=== PATIENT | female | born 1960 | race Caucasian/White ===

== ENCOUNTER 2023-01-28 15:48 | Inpatient (IN) | payer OTHER ==
[~2023-01-28] VITALS: Ht 167.6 cm; Wt 59.9 kg
[~2023-01-28 15:48] MED LIST: AMLO5 PO; ATEN50 PO; ATOR10 PO; ATOR40TA PO; B-121000 MC3 SL; CYCL10 PO; NAPR500 PO; OXAYDO5 M2 PO; TRAM50 PO
[2023-01-28] MEDS ORDERED: ASPI81CH PO (16:24)
[2023-01-28 16:42] LABS: BASOPHILS ABSOLUTE AUTO 0.08 K/mm3 (0.00-0.23); BASOPHILS PERCENT AUTO 1 % (0-2); EOSINOPHILS ABSOLUTE AUTO 0.03 K/mm3 (0.00-0.68); EOSINOPHILS PERCENT AUTO 0 % (0-6); Hematocrit 36.3 % (33.0-51.0); Hemoglobin 12.5 g/dL (11.5-16.0); IMMATURE GRAN ABSOLUTE AUTO 0.04 K/mm3 (0.00-0.10); IMMATURE GRAN PERCENT AUTO 1 % (0-1); LYMPHOCYTES PERCENT AUTO 27 % (21-46); MONOCYTES ABSOLUTE AUTO 0.56 K/mm3 (0.16-1.47); MONOCYTES PERCENT AUTO 7 % (4-13); Mean Corpuscular HGB 32.6 pg (26.0-34.0); Mean Corpuscular HGB Conc 34.4 g/dL (31.5-36.5); Mean Corpuscular Volume 95 fL (80-100); Mean Platelet Volume 10.5 fL (9.1-12.4); NEUTROPHILS ABSOLUTE AUTO 4.86 K/mm3 (1.96-9.15); NEUTROPHILS PERCENT AUTO 63 % (41-73); NRBC ABSOLUTE 0.02 K/mm3 (0.00-0.02); NRBC Auto 0.3 /100 WBC (0.0-0.2); Platelet Count 271 K/mm3 (150-400); RDW Coefficient Variation 18.3 % (11.7-14.2); RDW Standard Deviation 61.7 fL (35.1-46.3); Red Blood Cell Count 3.83 M/mm3 (3.80-5.20); White Blood Cell Count 7.67 K/mm3 (4.00-11.30)
[2023-01-28 17:21] LABS: Albumin, Blood 2.9 g/dL (3.4-5.0); Albumin/Globulin Ratio 0.8 (0.8-1.8); Bilirubin, Total 0.6 mg/dL (0.1-1.0); Bun/Creatinine Ratio 28.5 (12.0-20.0); Calcium, Blood 8.8 mg/dL (8.5-10.1); Creatinine, Blood 0.6 mg/dL (0.40-1.00); Globulin, Blood 3.5 g/dL (2.2-4.0); Potassium, Blood 2.4 mmol/L (3.5-5.5); Total Protein, Blood 6.4 g/dL (6.4-8.2)
[2023-01-28 17:46] LABS: Magnesium, Blood 1.2 mg/dL (1.6-2.4)
[2023-01-28 19:03] LABS: Influenza A, PCR NEGATIVE (NEGATIVE); Influenza B, PCR NEGATIVE (NEGATIVE); Resp Syncytial Virus, PCR NEGATIVE (NEGATIVE); SARS-Cov-2 (COVID-19) PCR, MMC NEGATIVE (NEGATIVE)
[2023-01-28 19:34] LABS: Source, Urine Clean Catch
[2023-01-28 19:38] LABS: Appearance, Urine Hazy (Clear); Blood, Urine 2+ (Neg); Color, Urine Yellow (P-Yellow); Glucose Qualitative, Urine Neg (Neg); Ketones, Urine 3+ (Neg); Leukocyte Esterase, Urine 1+ (Neg); Nitrite, Urine Neg (Neg); Protein, Urine 2+ (Neg); Specific Gravity, Urine 1.015 (1.003-1.022); Urobilinogen, Urine 2+ (Normal)
[2023-01-28 19:45] LABS: Bilirubin, Urine 1+ (Neg)
[2023-01-28 19:46] LABS: Bacteria Many /hpf; Hyaline Casts 0-2 /lpf (0-2); Squamous Epithelial Cells Mod /hpf (Few)
[2023-01-28 20:41] LABS: Base Excess Venous -2.4 mmol/L; Bicarbonate Venous 22.6 mmol/L (24.0-30.0); PCO2 Venous 36.2 mmHg (38-42)
[2023-01-28 21:31] VITALS: BP 98/74
--- NOTE | 2023-01-28 22:42 | NUR ---
AOC: PATIENT ALERT AND ORIENTED X 4 COTINENT OF BOWEL AND STOOL AT THIS TIME, [facility] PROVIDED ATTENDS IN PLACE. DENIES CHEST PAIN PRESSURE OR SOB, INFUSING D5 1/2NS AT 125 1 X ZOFRAN GIVEN DUE TO NAUSEA. SNACK PROVIDED, VSS, AFEBRILE. WARM BLANKETS PROVIDED. LAC IV REMOVED DUE TO POSSIBLE INFILTRATION. 20G STILL IN RFA. ANSWERS QUESTIONS HONESTLY AND ORIENTATION QUESTIONS APPROPRIATELY. PATIETN HAVING WEAKNESS, BSC AT BEDSIDE, EDUCATED ON CIL MEDICATIONS, CALL LIGHT, TELE IN PLACE. BED ALARM IN PLACE FOR PATIENT SAFETY.
[2023-01-28 23:46] LABS: Bun/Creatinine Ratio 25.4 (12.0-20.0); Calcium, Blood 7.1 mg/dL (8.5-10.1); Creatinine, Blood 0.59 mg/dL (0.40-1.00); Potassium, Blood 2.7 mmol/L (3.5-5.5)
[2023-01-28 23:49] VITALS: BP 85/55
[2023-01-29 04:58] VITALS: BP 95/75
--- NOTE | 2023-01-29 05:55 | NUR ---
EOS: PATIENT HAS INFUSING K+, STANDBY D5 1/2NS LAST CBG AT 0600, ELEVATED AT 169 SPOKE WITH PROVIDER PRIOR ABOUT SLOWLY INCREASING CBG, COOPERATIVE WITH CARE. NO CONCERNS FROM THIS RN.
[2023-01-29 07:47] VITALS: BP 93/71
[2023-01-29 08:21] LABS: BASOPHILS ABSOLUTE AUTO 0.04 K/mm3 (0.00-0.23); BASOPHILS PERCENT AUTO 1 % (0-2); EOSINOPHILS ABSOLUTE AUTO 0.03 K/mm3 (0.00-0.68); EOSINOPHILS PERCENT AUTO 1 % (0-6); Hematocrit 25.9 % (33.0-51.0); Hemoglobin 9.1 g/dL (11.5-16.0); IMMATURE GRAN ABSOLUTE AUTO 0.04 K/mm3 (0.00-0.10); IMMATURE GRAN PERCENT AUTO 1 % (0-1); LYMPHOCYTES ABSOLUTE AUTO 2.32 K/mm3 (0.84-5.20); LYMPHOCYTES PERCENT AUTO 38 % (21-46); MONOCYTES ABSOLUTE AUTO 0.63 K/mm3 (0.16-1.47); MONOCYTES PERCENT AUTO 10 % (4-13); Mean Corpuscular HGB 33.2 pg (26.0-34.0); Mean Corpuscular HGB Conc 35.1 g/dL (31.5-36.5); Mean Corpuscular Volume 95 fL (80-100); Mean Platelet Volume 11.2 fL (9.1-12.4); NEUTROPHILS ABSOLUTE AUTO 3.05 K/mm3 (1.96-9.15); NEUTROPHILS PERCENT AUTO 50 % (41-73); NRBC ABSOLUTE 0.02 K/mm3 (0.00-0.02); NRBC Auto 0.3 /100 WBC (0.0-0.2); Platelet Count 203 K/mm3 (150-400); RDW Coefficient Variation 18.1 % (11.7-14.2); RDW Standard Deviation 61.5 fL (35.1-46.3); Red Blood Cell Count 2.74 M/mm3 (3.80-5.20); White Blood Cell Count 6.11 K/mm3 (4.00-11.30)
[2023-01-29 09:24] LABS: Magnesium, Blood 1.4 mg/dL (1.6-2.4)
[2023-01-29 09:26] LABS: Albumin/Globulin Ratio 0.8 (0.8-1.8); Bilirubin, Total 0.2 mg/dL (0.1-1.0); Bun/Creatinine Ratio 21.2 (12.0-20.0); Calcium, Blood 6.9 mg/dL (8.5-10.1); Creatinine, Blood 0.57 mg/dL (0.40-1.00); Globulin, Blood 2.4 g/dL (2.2-4.0); Potassium, Blood 3.2 mmol/L (3.5-5.5); Total Protein, Blood 4.4 g/dL (6.4-8.2)
[2023-01-29 12:38] VITALS: BP 101/72
[2023-01-29 16:24] VITALS: BP 105/66
--- NOTE | 2023-01-29 17:04 | NUR ---
END OF SHIFT PT A&O X4. VSS. SPO2 > 92% ON RA. MONITOR SHOWING SR-ST, HR 80s-110s. PT WEAK, 1-2 PERSON ASSIST W/ GB & FWW TO BSC. PT BECOMING STRONGER T/O SHIFT. PT W/ EPISODES OF BOWEL INCONTINENCE THIS AM. PT W/ LIQUIDY BROWN STOOL & ONE XTRA LARGE HARD BM W/ SMALL AMOUNT OF RED BLOOD AFTER BM. PT ONLY W/ SMALL AMOUNT OF BRIGHT RED BLOOD WHEN WIPING AFTER NEXT BM. PT W/ FLAT AFFECT. PT STATING "I THOUGHT MY WAS FOR JUST A FEW DAYS, BUT THE POLICE SAID HE MUST HAVE BEEN FOR A WEEK OR SO." PT DENIES KNOWING HOW MUCH TIME PASSED. PT STATES "I WAS ON THE FLOOR. I COULDN'T GET UP BECAUSE I WAS PUKING." PT STATES "I DIDN'T KNOW WHERE MY PHONE WAS, BUT EVENTUALLY I MADE IT TO THE DOOR AND YELLED FOR HELP." PT W/ FLAT AFFECT WHILE SHARING. PT STATING "I DON'T KNOW WHAT HAPPENED TO HIM." PT W/ DIRT UNDER FINGERNAILS & SKIN APPEARING DIRT STAINED DESPITE BED BATHS IN HOSPITAL. 2 BED BATHS GIVEN THIS SHIFT. PT HAIR COMPLETELY MATTED W/ INCHES OF MATTED HAIR UNABLE TO DETANGLE DESPITE EFFORTS. PT STATING "I DIDN'T REALIZE IT WAS THAT BAD. IT'S BEEN NEEDING TO BE CUT OFF ANYWAYS." PT AGREEABLE TO CUTTING HAIR AFTER EXTENSIVE EFFORTS TO DETANGLE UNSUCCESSFUL. PT HAIR CUT & SHAMPOOED. PT REPORTS FEELING BETTER. PT W/ STRONG APPETITE, EATING ALL MEALS TODAY. D5 1/2 NS GTT INFUSING PER ORDERS. CBGs STABLE.
[2023-01-29 20:37] VITALS: BP 103/73
[2023-01-30 00:18] VITALS: BP 105/72
[2023-01-30 03:43] VITALS: BP 115/72
[2023-01-30 04:19] LABS: Hematocrit 25.6 % (33.0-51.0); Hemoglobin 8.7 g/dL (11.5-16.0); Mean Corpuscular HGB 32.2 pg (26.0-34.0); Mean Corpuscular Volume 95 fL (80-100); Mean Platelet Volume 10.9 fL (9.1-12.4); NRBC ABSOLUTE 0.03 K/mm3 (0.00-0.02); NRBC Auto 0.6 /100 WBC (0.0-0.2); Platelet Count 193 K/mm3 (150-400); RDW Coefficient Variation 18.2 % (11.7-14.2); RDW Standard Deviation 61.2 fL (35.1-46.3); White Blood Cell Count 4.78 K/mm3 (4.00-11.30)
--- NOTE | 2023-01-30 04:24 | NUR ---
SHIFT SUMMARY. PT HAS BEEN DOING WELL THROUGHOUT SHIFT. AOX4, PLEASANT, COOPERATIVE WITH CARE. FLAT DEMEANOR BUT VERY PLEASANT AND FRIENDLY. PAIN WELL MANAGED PER EMAR, ONLY MILD PAIN THAT SUBSIDES AFTER PO TYLENOL ADMINISTRATION. SOME NAUSEA REPORTED THIS MORNING THAT HAS BEEN WELL MANAGED VIA PRN IV ZOFRAN. CONTINENT/INCONTINENT. 2 CBG PERFORMED THIS SHIFT, BOTH >100MG/DL. CALLS APPROPRIATELY FOR ASSISTANCE. PT HAS BEEN ABLE TO SLEEP THROUGHOUT MOST OF SHIFT AFTER SHIFT ASSESSMENT AND 2100 MED PASS. BED LOCKED IN LOWEST POSITION. CALL LIGHT LEFT WITHINR REACH.
[2023-01-30 05:03] LABS: Bun/Creatinine Ratio 13.5 (12.0-20.0); Creatinine, Blood 0.67 mg/dL (0.40-1.00); Magnesium, Blood 1.9 mg/dL (1.6-2.4); Potassium, Blood 3.4 mmol/L (3.5-5.5); Thyroid Stimulating Hormone 1.31 uIU/mL (0.360-4.800)
[2023-01-30 08:25] VITALS: BP 96/76
--- NOTE | 2023-01-30 09:00 | NUR ---
SpirituaL care visit conducted. Patient is sitting up in bed and eating breakfast. She immediately shares about the of her spouse just days ago, about the removal of her dog to the pound and her strong Hoahaoism heather. She admits to drinking heavily and to blacking out. She states that the last thing she remembers is her holding the left side of his head, complaining of pain and then going into the kitchen. Her memory picks back up with her lying on the kitchen floor next to him, with no recollection of how she got there. She states that she could not move and struggled terribly to open the back door and yell at her neighbor who called . She talks about her spouse the positives and negatives about him, his conversion experience into the Hoahaoism heather and his two baptisms and the tensions she had with her in-laws over church. She is tearful at times but weeps when I provide a prayer. I normalize her experience, feelings and fears about the future, and provide grief support, therapeutic listening and a calming presence. I will continue to remain available to patient and family.
--- NOTE | 2023-01-30 09:43 | NUR ---
AT APROX 0825 RN TO ROOM TO ASSIST PT TO BSC. PT VERY WEAK 1 PERSON MAX ASSIST TO TRANSFER TO BSC. DURING TRANSFER PT HR ST @155. ONCE AT REST PT HR DECREASED TO 105. NOTIFIED. WILL OBTAIN ORTHOSTATIC VITALS WHEN PT UP AGAIN AND GIVE 1L BOLUS LR NOW.
[2023-01-30 17:28] VITALS: BP 110/81
--- NOTE | 2023-01-30 18:53 | NUR ---
SHIFT SUMMARY PT HAS DONE WELL T/O SHIFT. CIWA 0. PT HAS REPORTED PAIN TO L HEEL OF FOOT, NO OBVIOUS INJURY ON EXAM, TYLENOL FOR PAIN. PT UP TO BSC MULTIPLE TIMES T/O SHIFT 1-2 MAX ASSIST AT TIMES DUE TO WEAKNESS. MULTIPLE LARGE SOFT BM. VOIDING W/O DIFFICULTY. UP TO CHAIR FOR APROX 6 HRS AND TO SHOWER. TOLERATING REGULAR DIET PT WAS NAUSEATED FOLOWING NAP, MEDICATED AND RELIEVED WITH ZOFRAN. SALINE LOCKED. SPIRITUAL CARE IN TO SEE PT. PT CONTINUES TO HAVE FLAT AFFECT, REPORTS THAT SHE IS UNSURE OF WHAT OCCURED EXACTLY THAT LED TO HER BEING BROUGHT HERE. IS A/O X'S 4 T/O SHIFT. APS IN TO VISIT PT.
[2023-01-30 20:10] VITALS: BP 110/7
[2023-01-31 00:55] VITALS: BP 113/81
[2023-01-31 04:19] VITALS: BP 97/72
--- NOTE | 2023-01-31 04:38 | NUR ---
SHIFT SUMMARY. PT HAS BEEN DOING WELL THIS SHIFT. AOX4, PLEASANT, COOPERATIVE WITH CARE. SOMEWHAT FLAT BUT VERY PLEASANT. HAS BEEN ABLE TO SLEEP THROUGH MOST OF SHIFT. ONE EPISODE OF INCONTINENT BM EARLY THIS MORNING, NONE SINCE. BED CHANGE AND BED BATH PERFORMED. PAIN ADEQUATELY MANAGED ON PRN TYLENOL. HAS NOT GOTTEN OUT OF BED THUS FAR THIS SHIFT. CALLS APPROPRIATELY FOR ASSISTANCE. REPOSITIONS SELF INDEPENDENTLY. BED LOCKED IN LOWEST POSITION. CALL LIGHT LEFT WITHIN REACH. CONTINUING TO MONITOR.
[2023-01-31 05:14] LABS: Hematocrit 25.7 % (33.0-51.0); Hemoglobin 8.6 g/dL (11.5-16.0); Mean Corpuscular HGB 32.2 pg (26.0-34.0); Mean Corpuscular HGB Conc 33.5 g/dL (31.5-36.5); Mean Corpuscular Volume 96 fL (80-100); Mean Platelet Volume 11.4 fL (9.1-12.4); Platelet Count 199 K/mm3 (150-400); RDW Coefficient Variation 18.5 % (11.7-14.2); RDW Standard Deviation 64.1 fL (35.1-46.3); Red Blood Cell Count 2.67 M/mm3 (3.80-5.20); White Blood Cell Count 7.84 K/mm3 (4.00-11.30)
[2023-01-31 06:04] LABS: Bun/Creatinine Ratio 13.2 (12.0-20.0); Creatinine, Blood 0.61 mg/dL (0.40-1.00); Potassium, Blood 4.2 mmol/L (3.5-5.5)
[2023-01-31 07:32] VITALS: BP 90/69
[2023-01-31 08:09] LABS: Percent Saturation 50.6 % (15.0-50.0)
[2023-01-31 11:53] VITALS: BP 99/72
[2023-01-31 12:09] LABS: SARS-Cov-2 (COVID-19) PCR, MMC NEGATIVE (NEGATIVE)
--- NOTE | 2023-01-31 14:49 | NUR ---
DISCHARGE NOTE: PATIENT IS BEING DISCHARGED AND TRANSPORTED BY [facility] TO [facility]. THIS NURSE JUST GAVE REPORT TO LEO DIOR FROM [facility]. AFTER REPORT LEO RN FROM [facility] HAD NO FURTHER QUESTIONS AT THIS TIME. IV AND POWERGLIDE WERE TAKEN OUT AND WNL. PATIENT IS A&OX2-3 WITH HX OF DEMENTIA BUT IS EASILY REORIENTED. PATIENT IS TOLERATING PO INTAKE AND IS VOIDING/PASSING GAS/HAD MULTIPLE BMS. SHE IS DRESSED IN PAPER SCRUBS DUE TO HER STREET CLOTHING BEING SOILD IN URINE. SHE HAS ALL OF HER PERSONAL ITEMS IN THE ROOM GATHERED. PATIENT IS A 1-2 PERESON SBA WITH FWW AND GAIT BELT TO THE [id number]. PATIENT IS BEING WHEELCHAIRED BY [facility]SPORT TO [facility]. THIS NURSE ALSO GOT A HOLD OF DEPUTY FARRIS FROM [employer] TO UPDATE HIM THAT THE PATIENT IS BEING DISCHARGED TO [facility] WHICH DEPUTY FARRIS STATED HE UNDERSTOOD AND WOULD MAKE NOTE OF IT.
== END 2023-01-31 14:59 | DRG 640 ==
LOC: ER 15:48 → PCU 15:49
PROVIDERS: Emergency Medicine; Family Medicine; Internal Medicine; Nurse Practitioner Acute Care; Student in an Organized Health Care Education/Training Program; ADMIT Internal Medicine
PROC: HZ2ZZZZ Detoxification Services for Substance Abuse Treatment (ICD-10-PCS; principal; 2023-01-29)
DX: E87.6 Hypokalemia (principal); G92.8 Other toxic encephalopathy; D62 Acute posthemorrhagic anemia; I10 Essential (primary) hypertension; E87.21 Acute metabolic acidosis; E83.51 Hypocalcemia; E16.2 Hypoglycemia, unspecified; E83.42 Hypomagnesemia; W18.30XA Fall on same level, unspecified, initial encounter; F10.229 Alcohol dependence with intoxication, unspecified; F10.20 Alcohol dependence, uncomplicated; F43.20 Adjustment disorder, unspecified; E86.1 Hypovolemia; I95.9 Hypotension, unspecified; F17.210 Nicotine dependence, cigarettes, uncomplicated; F03.90 Unspecified dementia, unspecified severity, without behavioral disturbance, psychotic disturbance, mood disturbance, and anxiety; Z79.899 Other long term (current) drug therapy; Z79.82 Long term (current) use of aspirin
CPT/HCPCS: 0241U; 36415; 80048; 80053; 81001; 82010; 82330; 82550; 82607; 82728; 82746; 82803; 82947; 83540; 83550; 83605; 83735; 84443; 85025; 85027; 87086; 93005; 93010; 96361; 96365; 96366; 96367; 96368; 96372; 96375; 96376; 97110; 97162; 97530; 99285-25; A9270; G0378; J0612; J0696; J1650; J2405; J3411; J3475; J3480; J7030; J7040; J7042; J7050; J7120; U0002

== ENCOUNTER 2023-06-09 18:53 | Emergency (ER) | payer OTHER ==
[~2023-06-09] VITALS: Ht 167.6 cm; Wt 68.0 kg
[~2023-06-09 18:53] MED LIST changes: +ASPI81CH PO
[2023-06-09 19:31] LABS: BASOPHILS ABSOLUTE AUTO 0.05 K/mm3 (0.00-0.23); BASOPHILS PERCENT AUTO 0 % (0-2); EOSINOPHILS ABSOLUTE AUTO 0.11 K/mm3 (0.00-0.68); EOSINOPHILS PERCENT AUTO 1 % (0-6); Hematocrit 38.6 % (33.0-51.0); Hemoglobin 12.8 g/dL (11.5-16.0); IMMATURE GRAN ABSOLUTE AUTO 0.08 K/mm3 (0.00-0.10); IMMATURE GRAN PERCENT AUTO 1 % (0-1); LYMPHOCYTES ABSOLUTE AUTO 2.06 K/mm3 (0.84-5.20); LYMPHOCYTES PERCENT AUTO 17 % (21-46); MONOCYTES ABSOLUTE AUTO 0.91 K/mm3 (0.16-1.47); MONOCYTES PERCENT AUTO 8 % (4-13); Mean Corpuscular HGB 31.4 pg (26.0-34.0); Mean Corpuscular HGB Conc 33.2 g/dL (31.5-36.5); Mean Corpuscular Volume 95 fL (80-100); NEUTROPHILS ABSOLUTE AUTO 8.71 K/mm3 (1.96-9.15); NEUTROPHILS PERCENT AUTO 73 % (41-73); Platelet Count 178 K/mm3 (150-400); RDW Standard Deviation 52.2 fL (35.1-46.3); Red Blood Cell Count 4.08 M/mm3 (3.80-5.20); White Blood Cell Count 11.92 K/mm3 (4.00-11.30)
[2023-06-09 19:58] LABS: Bun/Creatinine Ratio 21.8 (12.0-20.0); Calcium, Blood 9.3 mg/dL (8.5-10.1); Creatinine, Blood 1.01 mg/dL (0.40-1.00); Potassium, Blood 2.8 mmol/L (3.5-5.5)
[2023-06-09] MEDS ORDERED: Potassium Chloride 20 MEQ TabCR PO ONE (21:05)
[2023-06-09 21:50] LABS: U Amphetamine Screen Not Detected; U Barbituate Screen Not Detected; U Benzodiazapine Screen Not Detected; U Buprenorphine Screen Not Detected; U Cannabinoids Screen Not Detected; U Cocaine Screen Not Detected; U Methadone Screen Not Detected; U Methamphetamine Screen Not Detected; U Opiates Screen Not Detected; U Oxycodone Screen Not Detected; U Phencyclidine Screen Not Detected
[2023-06-09 22:00] VITALS: BP 118/86
== END 2023-06-09 22:28 | disposition home or self-care (01) ==
LOC: ER 18:53
PROVIDERS: Student in an Organized Health Care Education/Training Program
DX: E87.6 Hypokalemia (principal); R55 Syncope and collapse; R56.9 Unspecified convulsions; D72.829 Elevated white blood cell count, unspecified; I10 Essential (primary) hypertension; F03.90 Unspecified dementia, unspecified severity, without behavioral disturbance, psychotic disturbance, mood disturbance, and anxiety; F17.200 Nicotine dependence, unspecified, uncomplicated; Z79.82 Long term (current) use of aspirin; Z79.899 Other long term (current) drug therapy
CPT/HCPCS: 70450; 80048; 83735; 85025; 93005; 93010; 99285-25; A9270

== ENCOUNTER 2024-02-16 23:34 | Inpatient (IN) | payer OTHER ==
[~2024-02-16] VITALS: Ht 152.4 cm; Wt 75.3 kg
[2024-02-17] MEDS ORDERED: Midazolam HCl 1MG / ML 2ML Vial IV SCH (02:20)
[2024-02-17 02:32] LABS: BASOPHILS ABSOLUTE AUTO 0.12 K/mm3 (0.00-0.23); BASOPHILS PERCENT AUTO 2 % (0-2); EOSINOPHILS ABSOLUTE AUTO 0.11 K/mm3 (0.00-0.68); EOSINOPHILS PERCENT AUTO 2 % (0-6); Hematocrit 40.9 % (33.0-51.0); Hemoglobin 13.9 g/dL (11.5-16.0); IMMATURE GRAN ABSOLUTE AUTO 0.03 K/mm3 (0.00-0.10); IMMATURE GRAN PERCENT AUTO 1 % (0-1); LYMPHOCYTES ABSOLUTE AUTO 2.73 K/mm3 (0.84-5.20); LYMPHOCYTES PERCENT AUTO 46 % (21-46); MONOCYTES ABSOLUTE AUTO 0.39 K/mm3 (0.16-1.47); MONOCYTES PERCENT AUTO 7 % (4-13); Mean Corpuscular HGB 35.7 pg (26.0-34.0); Mean Corpuscular Volume 105 fL (80-100); Mean Platelet Volume 9.1 fL (9.1-12.4); NEUTROPHILS ABSOLUTE AUTO 2.54 K/mm3 (1.96-9.15); NEUTROPHILS PERCENT AUTO 43 % (41-73); Platelet Count 251 K/mm3 (150-400); RDW Coefficient Variation 17.4 % (11.7-14.2); RDW Standard Deviation 67.9 fL (35.1-46.3); Red Blood Cell Count 3.89 M/mm3 (3.80-5.20); White Blood Cell Count 5.92 K/mm3 (4.00-11.30)
[2024-02-17 02:47] LABS: Base Excess Venous -1.9 mmol/L; Bicarbonate Venous 22.1 mmol/L (24.0-30.0); PCO2 Venous 47.5 mmHg (38-42); pH Blood Venous 7.32 (7.34-7.37)
[2024-02-17 02:56] LABS: Magnesium, Blood 1.2 mg/dL (1.6-2.4); Thyroid Stimulating Hormone 0.447 uIU/mL (0.360-4.800)
[2024-02-17 02:59] LABS: Alanine Aminotransfer (ALT/SGP 18 U/L (12-78); Albumin, Blood 3.5 g/dL (3.4-5.0); Albumin/Globulin Ratio 0.9 (0.8-1.8); Alk Phos 83 U/L (50-136); Anion Gap 12 mmol/L (3-11); Aspartate Aminotrans (AST/SGOT 28 U/L (12-37); Bilirubin, Total 0.3 mg/dL (0.1-1.0); Blood Urea Nitrogen 19 mg/dL (8-24); Bun/Creatinine Ratio 30.8 (12.0-20.0); CO2, Blood 24 mmol/L (21-32); Calcium, Blood 8.8 mg/dL (8.5-10.1); Chloride, Blood 115 mmol/L (98-108); Creatinine, Blood 0.62 mg/dL (0.40-1.00); Ethanol (Alcohol), Blood, Med 308 mg/dL; Glomerular Filtration Rate 99 (60-); Glucose, Blood 84 mg/dL (70-99); Potassium, Blood 3.4 mmol/L (3.5-5.5); Sodium, Blood 148 mmol/L (136-145); Total Protein, Blood 7.5 g/dL (6.4-8.2)
[2024-02-17 03:00] LABS: Acetaminophen, Random <2.0 ug/mL (10.0-30.0)
[2024-02-17 03:23] LABS: Influenza A, PCR NEGATIVE (NEGATIVE); Influenza B, PCR NEGATIVE (NEGATIVE); Resp Syncytial Virus, PCR NEGATIVE (NEGATIVE); SARS-Cov-2 (COVID-19) PCR, MMC NEGATIVE (NEGATIVE)
[2024-02-17] MEDS ORDERED: NS 1,000 ML IV SCH (04:00)
[2024-02-17] MEDS ORDERED: Magnesium Sulf 2 GM/Water 50ML 50 ML IV ONE (04:10)
[2024-02-17] MEDS ORDERED: Potassium Chl 20MEQ/Water100ML 100 ML IV ONE (04:10)
[2024-02-17] MEDS ORDERED: Lactated Ringer's 1,000 ML IV SCH ×3 (04:10→07:45)
[2024-02-17] MEDS ORDERED: Thiamine HCl 100 MG in NS 50 ML IV ONE (04:55)
[2024-02-17] MEDS ORDERED: Folic Acid 1 MG in NS 50 ML IV ONE (04:55)
[2024-02-17] MEDS ORDERED: FLU VACC TS2024-25(6MOS UP)/PF 45 MCG/0.5 ML SYRINGE IM SCH (05:20)
[2024-02-17] MEDS ORDERED: ChlordiazePOXIDE 25 MG Cap PO PRN (05:20)
[2024-02-17] MEDS ORDERED: Acetaminophen 325 MG TABLET PO PRN (05:20)
[2024-02-17] MEDS ORDERED: LORazepam 2 MG/ML 1ML Injection IV PRN (05:25)
[2024-02-17] MEDS ORDERED: HydrALAZINE HCl 20 MG / ML 1ML Vial IV PRN (05:25)
[2024-02-17] MEDS ORDERED: FOLI1 PO (05:25)
[2024-02-17] MEDS ORDERED: Hair, Skin & N1 EACH PO (05:26)
[2024-02-17 06:00] LABS: Base Excess Venous -0.5 mmol/L; Bicarbonate Venous 23.3 mmol/L (24.0-30.0); PCO2 Venous 42.2 mmHg (38-42); pH Blood Venous 7.38 (7.34-7.37)
[2024-02-17] MEDS ORDERED: Nicotine 14 MG PATCH TOP ONE (06:05)
[2024-02-17 06:22] LABS: Source, Urine Clean Catch
[2024-02-17 06:29] LABS: Appearance, Urine Clear (Clear); Bilirubin, Urine Neg (Neg); Blood, Urine Neg (Neg); Color, Urine Yellow (P-Yellow); Glucose Qualitative, Urine Neg (Neg); Ketones, Urine Neg (Neg); Leukocyte Esterase, Urine Neg (Neg); Nitrite, Urine Neg (Neg); Protein, Urine 2+ (Neg); Specific Gravity, Urine 1.015 (1.003-1.022); Urobilinogen, Urine NORM (Normal)
[2024-02-17 06:37] LABS: Bacteria Rare /hpf; Red Blood Cells, Urine 0-2 /hpf (0-2); Squamous Epithelial Cells Few /hpf (Few); White Blood Cells, Urine 0-2 /hpf (0-5)
[2024-02-17 06:52] LABS: Albumin, Blood 3.3 g/dL (3.4-5.0); Anion Gap 14 mmol/L (3-11); Blood Urea Nitrogen 19 mg/dL (8-24); Bun/Creatinine Ratio 36.7 (12.0-20.0); CO2, Blood 24 mmol/L (21-32); Calcium, Blood 8.5 mg/dL (8.5-10.1); Chloride, Blood 114 mmol/L (98-108); Creatinine, Blood 0.52 mg/dL (0.40-1.00); Glomerular Filtration Rate 104 (60-); Glucose, Blood 89 mg/dL (70-99); Magnesium, Blood 1.9 mg/dL (1.6-2.4); Phosphorus, Blood 2.5 mg/dL (2.5-4.9); Potassium, Blood 3.5 mmol/L (3.5-5.5); Sodium, Blood 148 mmol/L (136-145)
[2024-02-17 06:56] VITALS: BP 176/119
[2024-02-17 07:29] VITALS: BP 166/99
[2024-02-17 07:30] VITALS: BP 166/99
[2024-02-17] MEDS ORDERED: Potassium Chl 10MEQ/Water100ML 100 ML IV SCH (09:05)
[2024-02-17 15:58] VITALS: BP 168/106
--- NOTE | 2024-02-17 17:44 | NUR ---
ADMISSION AND SHIFT SUMMARY PATIENT ALERT BUT CONFUSED. PATIENT EASILY IRRITABLE AND SAYING SHE HAS BEEN HERE FOR DAYS. PATIENT ADMITTED TODAY. PATIENT ALSO NOTED TO BE INCONTINENT STOOL X2 IN ED. PATIENT WANTING TO EAT BUT VOMITTING MOST OF THE MORNING. PATIENT ABLE TO KEEP LIQUIDS DOWN LATER IN THE SHIFT AND ADVANCED TO HAVE A DIET. PATIENT MEDICATED WITH ATIVAN X2 IV THEN GIVEN PO LIBRIUM WHEN NO LONGER VOMITTING. PATIENT UNSTEADY AND SHAKY WHEN ATTEMPTING TO GET OUT OF BED. BED ALARM SET FOR SAFETY. PATIENT CONTINUES TO BE CONFUSED BUT ABLE TO BE REORIENTED. CONTINUE TO MONITOR FOR SYMPTOMS OF WITHDRAWL.
[2024-02-17 20:37] VITALS: BP 176/122
[2024-02-18 02:10] VITALS: BP 167/109
--- NOTE | 2024-02-18 04:45 | NUR ---
SHIFT SUMMARY 64 YR F ADMITTED ON 02/17/24. FULL CODE. NO ACUTE CHANGES THIS SHIFT. PT HAS SLEPT FOR MOST OF THIS SHIFT. SHE HAS NOT BEEN INCONTINENT THIS SHIFT, BUT RATHER HAS GOTTEN UP TO THE BSC. SHE RECEIVED 10 MG HYDRALIZINE FOR ELEVATED BP, AND 2 MG ATIVAN FOR A CIWA SCORE OF 8. IV IN LEFT ARM INFILTRATED AND NEW IV PLACED IN RIGHT HAND. WILL CONTINUE TO MONITOR. BED IN LOW POSITION AND CALL LIGHT IN REACH.
[2024-02-18 05:20] LABS: Hematocrit 37.8 % (33.0-51.0); Hemoglobin 13.3 g/dL (11.5-16.0); Mean Corpuscular HGB 35.8 pg (26.0-34.0); Mean Corpuscular HGB Conc 35.2 g/dL (31.5-36.5); Mean Corpuscular Volume 102 fL (80-100); Mean Platelet Volume 9.8 fL (9.1-12.4); NRBC ABSOLUTE 0.02 K/mm3 (0.00-0.02); NRBC Auto 0.4 /100 WBC (0.0-0.2); Platelet Count 237 K/mm3 (150-400); RDW Coefficient Variation 16.8 % (11.7-14.2); RDW Standard Deviation 63.5 fL (35.1-46.3); Red Blood Cell Count 3.71 M/mm3 (3.80-5.20); White Blood Cell Count 5.07 K/mm3 (4.00-11.30)
[2024-02-18 06:04] LABS: Albumin, Blood 3.5 g/dL (3.4-5.0); Anion Gap 13 mmol/L (3-11); Blood Urea Nitrogen 9 mg/dL (8-24); CO2, Blood 25 mmol/L (21-32); Calcium, Blood 8.7 mg/dL (8.5-10.1); Chloride, Blood 100 mmol/L (98-108); Glomerular Filtration Rate 100 (60-); Glucose, Blood 116 mg/dL (70-99); Magnesium, Blood 0.9 mg/dL (1.6-2.4); Phosphorus, Blood 2.1 mg/dL (2.5-4.9); Potassium, Blood 2.9 mmol/L (3.5-5.5)
[2024-02-18 06:05] LABS: Sodium, Blood 135 mmol/L (136-145)
[2024-02-18] MEDS ORDERED: Potassium Phosphate Dibasic 30 MM in Dextrose 5% 500 ML IV STA (06:23)
[2024-02-18] MEDS ORDERED: Magnesium Sulf 2 GM/Water 50ML 50 ML IV ONE (06:25)
[2024-02-18 07:51] VITALS: BP 154/114
[2024-02-18] MEDS ORDERED: Enoxaparin 40 MG/0.4 ML SYR SC SCH (09:00)
[2024-02-18] MEDS ORDERED: AmLODIPine Besylate 5 MG Tab PO SCH (09:00)
[2024-02-18] MEDS ORDERED: Lisinopril 10 MG Tab PO SCH (09:00)
[2024-02-18] MEDS ORDERED: Thiamine HCl 100 MG in NS 50 ML IV SCH (09:00)
[2024-02-18] MEDS ORDERED: Folic Acid 1 MG in NS 50 ML IV SCH (09:00)
--- NOTE | 2024-02-18 09:39 | NUR ---
ASSUMED CARE OF PATIENT. SLEEPING ON LEFT SIDE DURING SHIFT CHANGE REPORT. SALINE LOCKED.
--- NOTE | 2024-02-18 11:25 | NUR ---
Call from friend, Harika Spencer, who states she is the one who cares for Judith. Judith's only family is a brother who lives [id number] and his is currently actively dying on hospice, so she is trying to avoid contacting him. Harika has gathered a group of people to clean Judith's house while she is in the hospital and is wondering how she would go about getting Judith more assistance, such as a walker, a bedside commode, etc. Will await PT/OT eval and recommendations. In the meantime, Harika can be reached for anything that may need to be done. She did report Judith has not bathed in a very long time. Will attempt bedbath today, as she is very lethargic from medications, at this time. Vargas Mackenzie - Judith's brother [phone] Harika Spencer: Home:
[2024-02-18 16:00] VITALS: BP 110/87
[2024-02-18 16:31] LABS: Magnesium, Blood 1.7 mg/dL (1.6-2.4); Potassium, Blood 3.6 mmol/L (3.5-5.5)
--- NOTE | 2024-02-18 18:28 | NUR ---
END OF SHIFT SUMMARY: A&Ox3-4. PLEASANT AND COOPERATIVE WITH CARE. CALLS APPROPRIATELY AND IS ABLE TO ADVOCATE NEEDS EFFECTIVELY. CONTINENT OF BOWEL AND BLADDER. SBA c FWW PIVOT TO BSC FOR SAFETY AND LINE MANAGEMENT. MEDS WHOLE WITH FLUIDS. CIWAs TODAY 10, 4 AND 8. MEDICATED PRN LIBRIUM x2 AND ATIVAN x1. SOME TACTILE DISTURBANCES. SLEPT MOST OF DAY. TOLERATING FLUIDS AND MEALS WITHOUT ISSUE. IV THIAMINE AND MVI CHANGED TO PO. ELECTROLYTES REPLACED TODAY VIA IV. BED IN LOWEST POSITION, CALL LIGHT WITHIN REACH, ALL NEEDS MET. REPORT TO ONCOMING NURSE.
[2024-02-18 20:03] VITALS: BP 119/90
[2024-02-19 02:38] VITALS: BP 111/79
[2024-02-19 06:04] LABS: Hematocrit 36.9 % (33.0-51.0); Hemoglobin 12.7 g/dL (11.5-16.0); Mean Corpuscular HGB 35.7 pg (26.0-34.0); Mean Corpuscular HGB Conc 34.4 g/dL (31.5-36.5); Mean Corpuscular Volume 104 fL (80-100); Mean Platelet Volume 10.2 fL (9.1-12.4); NRBC ABSOLUTE 0.02 K/mm3 (0.00-0.02); NRBC Auto 0.4 /100 WBC (0.0-0.2); Platelet Count 222 K/mm3 (150-400); RDW Coefficient Variation 16.6 % (11.7-14.2); RDW Standard Deviation 63.9 fL (35.1-46.3); Red Blood Cell Count 3.56 M/mm3 (3.80-5.20); White Blood Cell Count 4.96 K/mm3 (4.00-11.30)
--- NOTE | 2024-02-19 06:34 | NUR ---
SHIFT SUMMARY 64 YR F ADMITTED ON 02/17/24. FULL CODE. NO ACUTE CHANGES THIS SHIFT. PT HAS SLEPT FOR ENTIRETY OF THIS SHIFT. CIWA SCORES WERE 4 AND NO PRN MEDS WERE GIVEN. BED IN LOW POSITION AND CALL LIGHT IN REACH.
[2024-02-19 06:46] LABS: Albumin, Blood 3.2 g/dL (3.4-5.0); Anion Gap 10 mmol/L (3-11); Blood Urea Nitrogen 20 mg/dL (8-24); Bun/Creatinine Ratio 18.9 (12.0-20.0); CO2, Blood 27 mmol/L (21-32); Chloride, Blood 104 mmol/L (98-108); Creatinine, Blood 1.06 mg/dL (0.40-1.00); Glomerular Filtration Rate 59 (60-); Glucose, Blood 114 mg/dL (70-99); Magnesium, Blood 1.6 mg/dL (1.6-2.4); Phosphorus, Blood 4.1 mg/dL (2.5-4.9); Potassium, Blood 3.1 mmol/L (3.5-5.5); Sodium, Blood 138 mmol/L (136-145)
[2024-02-19 07:30] VITALS: BP 127/90
[2024-02-19] MEDS ORDERED: Potassium Chloride 20 MEQ TabCR PO ONE (07:35)
[2024-02-19] MEDS ORDERED: Multivitamins 1 Tab PO SCH (09:00)
[2024-02-19 15:41] VITALS: BP 99/80
--- NOTE | 2024-02-19 18:09 | NUR ---
SHIFT SUMMARY PT CONT LEVEL OF CARE WITH NO ACUTE CHANGES NOTED. PT NOTED TO BE A&OX4 THIS SHIFT AND ASSIST X1. PT DID WORK WITH THERAPY THIS SHIFT WHOM IS RECOMMENDING HOME HEALTH UPON DC. PT NOTED TO WALK TO RESTROOM AND AROUND ROOM WITH STAFF AND UP TO CHAIR FOR MEALS.
[2024-02-19 19:17] VITALS: BP 123/84
[2024-02-20 04:28] VITALS: BP 128/103
--- NOTE | 2024-02-20 04:41 | NUR ---
SHIFT SUMMARY 64 YR F ADMITTED ON 02/17/24. NO ACUTE CHANGES THIS SHIFT. PT C/O HEADACHE AT BEGINNING OF SHIFT AND MEDICATED W/ TYLENOL. NO OTHER C/O PAIN OR DISCOMFORT. CIWA SCORES HAVE BEEN 1. SHE HAS SLEPT THROUGHOUT THE NIGHT. NOTHING NEW TO REPORT. BED IN LOW POSITION AND CALL LIGHT IN REACH.
[2024-02-20 05:16] LABS: Bun/Creatinine Ratio 23.8 (12.0-20.0); Calcium, Blood 9.1 mg/dL (8.5-10.1); Creatinine, Blood 0.97 mg/dL (0.40-1.00); Potassium, Blood 3.7 mmol/L (3.5-5.5)
[2024-02-20 07:23] VITALS: BP 150/98
[2024-02-20 16:06] VITALS: BP 136/117
--- NOTE | 2024-02-20 16:21 | NUR ---
report received verified, a/o vss, pt pleasent and cooperative and not at all showing symptoms of etoh withdrawl. possible discharge for pt today.
--- NOTE | 2024-02-20 16:23 | NUR ---
pt has discharge orders but when i spoke with manager medicare marketing she states that pts house is very much uninhabitable and she wasnt expecting to have pt home today and she had removed bed because it was severly soiled. caregiver stated she will replace the bed tomorrow. case managere and were notified and discharge is held until tomorrow.
--- NOTE | 2024-02-20 16:26 | NUR ---
1500 pt was assisted with shower, she cherri very well and was mostly independant .
[2024-02-20 19:36] VITALS: BP 132/92
--- NOTE | 2024-02-20 22:34 | NUR ---
NEW T-ORDER FROM ON-CALL HOSPITALIST : MELATONIN 5MG PO PRN, AND MELATONIN 5MG PO NOW. ENTERED TO [employer], SEE EMAR. NO ADDITIONAL NEW ORDERS AT THIS TIME.
[2024-02-20] MEDS ORDERED: Melatonin 5 MG Tablet PO ONE (22:35)
[2024-02-20] MEDS ORDERED: Melatonin 5 MG Tablet PO PRN (22:35)
[2024-02-21 02:35] VITALS: BP 141/100
[2024-02-21 04:34] VITALS: BP 125/84
--- NOTE | 2024-02-21 05:08 | NUR ---
SHIFT SUMMARY NO ACUTE EVENTS DURING THIS SHIFT. PT C/O H/A AND CHRONIC BACKPAIN AT HS. MEDICATED PER EMAR WITH GOOD EFFECTIVNESS. TELE: SR @78. BED AT THE LOWEST POSITION, CALL LIGHT WITHIN REACH. PT IS A&O X4, PLEASANT, COOPERATIVE WITH CARE, AND ABLE TO MAKE HER NEEDS KNOWN. SBA TO THE RESTROOM. HS MELATONIN (NEW ORDER) EFFECTIVE.
[2024-02-21 07:37] VITALS: BP 143/102
[2024-02-21 15:43] VITALS: BP 134/93
--- NOTE | 2024-02-21 18:18 | NUR ---
A/O X4 VERY PLEASENT AND COOPERATIVE WITH CARE. PT DISHARGE WAS HELD TODAY BECAUSE [facility] COULD FINISH MAKING PT HOUSE SAFE. PLAN FOR DISCHARGE TOMORROW TO [facility] UNTIL HOUSE IS FINISHED. CALL LIGHT WITHIN REACH CAN MAKE NEEDS KNOWN
--- NOTE | 2024-02-21 20:52 | NUR ---
NEW T-ORDER FROM ON-CALL HOSPITALIST : BENADRYL PO 25MG ONCE. ENTERED TO [employer], SEE EMAR. NO ADDITIONAL NEW ORDERS AT THIS TIME.
[2024-02-21] MEDS ORDERED: DiphenhydrAMINE HCL 25 MG Cap PO ONE (20:55)
[2024-02-21 21:24] VITALS: BP 150/76
--- NOTE | 2024-02-22 04:02 | NUR ---
SHIFT SUMMARY NO ACUTE EVENTS DURING THIS SHIFT. PT IS A&O X4, ABLE TO MAKE HER NEEDS KNOWN AND COOPERATIVE WITH CARE. PT DENIES PAIN/SOB/DISCOMFORT DURING THIS SHIFT. VSS. BED AT THE LOWEST POSITION, CALL LIGHT WITHIN REACH. PT WILL BE DISCHARGING TODAY BEFORE 1300 TO [facility] IN [place], AND WILL NEED A RIDE ARRANGED FROM CASE MANAGMENT, PER PREVIOUS SHIFT RN'S REPORT.
[2024-02-22 05:04] VITALS: BP 150/100
[2024-02-22 07:39] VITALS: BP 135/95
[2024-02-22] MEDS ORDERED: Prinivil10 MG PO (14:16)
[2024-02-22] MEDS ORDERED: AMLO5 PO (14:16)
[2024-02-22] MEDS ORDERED: MELA3 PO (14:16)
--- NOTE | 2024-02-22 16:21 | NUR ---
REPORT RECEIEVED, UNEVENTFUL DAY TODAY PT ANTICIPATING GOING HOME. MINIMAL CHRONIC PAIN TO RIGHT HIP TREATED WITH TYLENOL. PT WAS INDEPENDANT IN ROOM UNTIL DISCHARGE AT 1530
== END 2024-02-22 15:59 | disposition home health service (06) | DRG 896 ==
LOC: ER 23:34 → MEDS 02-17 02:35 → ERHOLD 02-17 02:35 → MEDS 02-17 02:36
PROVIDERS: Emergency Medicine; Internal Medicine; ADMIT Student in an Organized Health Care Education/Training Program
PROC: HZ2ZZZZ Detoxification Services for Substance Abuse Treatment (ICD-10-PCS; principal; 2024-02-17)
DX: F10.229 Alcohol dependence with intoxication, unspecified (principal); G92.8 Other toxic encephalopathy; G93.41 Metabolic encephalopathy; J96.02 Acute respiratory failure with hypercapnia; E87.21 Acute metabolic acidosis; F03.911 Unspecified dementia, unspecified severity, with agitation; E87.0 Hyperosmolality and hypernatremia; I10 Essential (primary) hypertension; Y90.8 Blood alcohol level of 240 mg/100 ml or more; F10.239 Alcohol dependence with withdrawal, unspecified; E87.6 Hypokalemia; F17.200 Nicotine dependence, unspecified, uncomplicated; E86.0 Dehydration; Z60.2 Problems related to living alone; E83.42 Hypomagnesemia; Z79.82 Long term (current) use of aspirin
CPT/HCPCS: 0241U; 36415; 70450; 72125; 80048; 80053; 80069; 80320; 81001; 82140; 82607; 82746; 82803; 82947; 83605; 83735; 84100; 84132; 84443; 85025; 85027; 93005; 93010; 94760; 96361; 96365; 96366; 96367; 96368; 96372; 96374; 96375; 96376; 97110; 97116; 97161; 97165; 97530; 97535; 99285-25; A9270; G0378; G0480; J0360; J1650; J2060; J2250; J3411; J3475; J3480; J7030; J7060; J7120

== ENCOUNTER → 2024-03-15 | Outpatient (CLI) | payer OTHER ==
[~2024-03-15] MED LIST changes: +Amoxicillin875 MG PO; +FOLI1 PO; +Hair, Skin & N1 EACH PO; +MELA3 PO; +Prinivil10 MG PO
[2024-03-15 19:23] LABS: BASOPHILS ABSOLUTE AUTO 0.07 K/mm3 (0.00-0.23); BASOPHILS PERCENT AUTO 1 % (0-2); EOSINOPHILS PERCENT AUTO 1 % (0-6); Hematocrit 40.7 % (33.0-51.0); Hemoglobin 14.6 g/dL (11.5-16.0); IMMATURE GRAN ABSOLUTE AUTO 0.04 K/mm3 (0.00-0.10); IMMATURE GRAN PERCENT AUTO 0 % (0-1); LYMPHOCYTES ABSOLUTE AUTO 3.29 K/mm3 (0.84-5.20); LYMPHOCYTES PERCENT AUTO 30 % (21-46); MONOCYTES ABSOLUTE AUTO 1.36 K/mm3 (0.16-1.47); MONOCYTES PERCENT AUTO 12 % (4-13); Mean Corpuscular HGB 36.9 pg (26.0-34.0); Mean Corpuscular HGB Conc 35.9 g/dL (31.5-36.5); Mean Corpuscular Volume 103 fL (80-100); Mean Platelet Volume 11.1 fL (9.1-12.4); NEUTROPHILS ABSOLUTE AUTO 6.13 K/mm3 (1.96-9.15); NEUTROPHILS PERCENT AUTO 56 % (41-73); Platelet Count 219 K/mm3 (150-400); RDW Coefficient Variation 15.8 % (11.7-14.2); RDW Standard Deviation 58.9 fL (35.1-46.3); Red Blood Cell Count 3.96 M/mm3 (3.80-5.20); White Blood Cell Count 10.99 K/mm3 (4.00-11.30)
[2024-03-15 19:56] LABS: Bun/Creatinine Ratio 21.4 (12.0-20.0); Calcium, Blood 9.4 mg/dL (8.5-10.1); Creatinine, Blood 1.03 mg/dL (0.40-1.00); Magnesium, Blood 1.2 mg/dL (1.6-2.4); Potassium, Blood 3.3 mmol/L (3.5-5.5)
[2024-03-15 19:59] LABS: Alanine Aminotransfer (ALT/SGP 52 U/L (12-78); Albumin, Blood 3.7 g/dL (3.4-5.0); Albumin/Globulin Ratio 1.1 (0.8-1.8); Alk Phos 79 U/L (50-136); Aspartate Aminotrans (AST/SGOT 59 U/L (12-37); Bilirubin, Direct 0.3 mg/dL (0.0-0.3); Bilirubin, Indirect 0.4 mg/dL (0.1-0.7); Bilirubin, Total 0.7 mg/dL (0.1-1.0); CHOL/HDL RATIO 1.6; Cholesterol 201 mg/dL (50-200); Globulin, Blood 3.5 g/dL (2.2-4.0); HDL Cholesterol 122 mg/dL (>39); LDL/HDL RATIO 0.4; Low Density Lipoprotein Chol 54 mg/dL (0-110); Total Protein, Blood 7.2 g/dL (6.4-8.2); Triglycerides 126 mg/dL (30-160); Very Low Density Lipoprot Chol 25 mg/dL (6-32)
== END | disposition home or self-care (01) ==
LOC: LAB 18:32 → LAB SHORT 18:32
PROVIDERS: Family Medicine; Nurse Practitioner Family
DX: E87.6 Hypokalemia (principal); F10.20 Alcohol dependence, uncomplicated
CPT/HCPCS: 80048; 80061; 80076; 82607; 82746; 83735; 83880; 85025

== ENCOUNTER 2024-03-20 13:15 | Emergency (ER) | payer OTHER ==
[~2024-03-20] VITALS: Ht 167.6 cm; Wt 63.5 kg
[~2024-03-20 13:15] MED LIST changes: -Amoxicillin875 MG PO
[2024-03-20 14:00] VITALS: BP 108/79
[2024-03-20 14:11] LABS: BASOPHILS ABSOLUTE AUTO 0.12 K/mm3 (0.00-0.23); BASOPHILS PERCENT AUTO 2 % (0-2); EOSINOPHILS ABSOLUTE AUTO 0.13 K/mm3 (0.00-0.68); EOSINOPHILS PERCENT AUTO 2 % (0-6); Hematocrit 41.4 % (33.0-51.0); Hemoglobin 14.1 g/dL (11.5-16.0); IMMATURE GRAN ABSOLUTE AUTO 0.03 K/mm3 (0.00-0.10); IMMATURE GRAN PERCENT AUTO 1 % (0-1); LYMPHOCYTES PERCENT AUTO 57 % (21-46); MONOCYTES ABSOLUTE AUTO 0.59 K/mm3 (0.16-1.47); MONOCYTES PERCENT AUTO 9 % (4-13); Mean Corpuscular HGB 35.9 pg (26.0-34.0); Mean Corpuscular HGB Conc 34.1 g/dL (31.5-36.5); Mean Corpuscular Volume 105 fL (80-100); Mean Platelet Volume 9.9 fL (9.1-12.4); NEUTROPHILS ABSOLUTE AUTO 1.89 K/mm3 (1.96-9.15); NEUTROPHILS PERCENT AUTO 29 % (41-73); Platelet Count 207 K/mm3 (150-400); RDW Coefficient Variation 16.6 % (11.7-14.2); RDW Standard Deviation 65.2 fL (35.1-46.3); Red Blood Cell Count 3.93 M/mm3 (3.80-5.20); White Blood Cell Count 6.46 K/mm3 (4.00-11.30)
[2024-03-20 14:11] LABS: CORONAVIRUS COVID-19 AG Negative (NEGATIVE); INFLUENZA A AG Negative (NEGATIVE); INFLUENZA B AG Negative (NEGATIVE)
[2024-03-20] MEDS ORDERED: Nicotine 21 MG PATCH TOP ONE (14:20)
[2024-03-20] MEDS ORDERED: Ipratropium/Albuterol SulF 2.5-0.5MG/3 ML Amp INH ONE (14:25)
[2024-03-20 14:26] LABS: Albumin/Globulin Ratio 0.9 (0.8-1.8); Bilirubin, Total 0.1 mg/dL (0.1-1.0); Bun/Creatinine Ratio 20.8 (12.0-20.0); Calcium, Blood 8.4 mg/dL (8.5-10.1); Creatinine, Blood 0.77 mg/dL (0.40-1.00); Globulin, Blood 3.4 g/dL (2.2-4.0); Potassium, Blood 4.1 mmol/L (3.5-5.5); Total Protein, Blood 6.4 g/dL (6.4-8.2)
[2024-03-20 15:50] LABS: Source, Urine Voided
[2024-03-20 16:06] LABS: Appearance, Urine Clear (Clear); Bilirubin, Urine Neg (Neg); Blood, Urine Neg (Neg); Color, Urine Yellow (P-Yellow); Glucose Qualitative, Urine Neg (Neg); Ketones, Urine Neg (Neg); Leukocyte Esterase, Urine Neg (Neg); Nitrite, Urine Neg (Neg); Protein, Urine Neg (Neg); Urobilinogen, Urine NORM (Normal)
[2024-03-20] MEDS ORDERED: Amoxicillin 875 MG Tab PO ONE (17:10)
[2024-03-20] MEDS ORDERED: Amoxicillin875 MG PO (17:19)
== END 2024-03-20 20:31 | disposition home or self-care (01) ==
LOC: ER 13:15
PROVIDERS: Emergency Medicine
DX: J18.9 Pneumonia, unspecified organism (principal); M25.561 Pain in right knee; X50.1XXA Overexertion from prolonged static or awkward postures, initial encounter; I10 Essential (primary) hypertension; F03.90 Unspecified dementia, unspecified severity, without behavioral disturbance, psychotic disturbance, mood disturbance, and anxiety; F17.200 Nicotine dependence, unspecified, uncomplicated; Z79.82 Long term (current) use of aspirin; Z79.899 Other long term (current) drug therapy
CPT/HCPCS: 71045; 73562-RT; 80053; 81003; 85025; 87428-QW; 94640; 94664; 99284-25; A9270

== ENCOUNTER 2024-11-04 11:49 | Emergency (ER) | payer OTHER ==
[~2024-11-04] VITALS: Ht 167.6 cm; Wt 95.2 kg
[~2024-11-04 11:49] MED LIST changes: +Amoxicillin875 MG PO
[2024-11-04 12:39] LABS: BASOPHILS ABSOLUTE AUTO 0.16 K/mm3 (0.00-0.23); BASOPHILS PERCENT AUTO 1 % (0-2); EOSINOPHILS ABSOLUTE AUTO 0.03 K/mm3 (0.00-0.68); EOSINOPHILS PERCENT AUTO 0 % (0-6); Hematocrit 44.0 % (33.0-51.0); Hemoglobin 15.0 g/dL (11.5-16.0); IMMATURE GRAN ABSOLUTE AUTO 0.06 K/mm3 (0.00-0.10); IMMATURE GRAN PERCENT AUTO 1 % (0-1); LYMPHOCYTES ABSOLUTE AUTO 2.49 K/mm3 (0.84-5.20); LYMPHOCYTES PERCENT AUTO 21 % (21-46); MONOCYTES ABSOLUTE AUTO 0.74 K/mm3 (0.16-1.47); MONOCYTES PERCENT AUTO 6 % (4-13); Mean Corpuscular HGB Conc 34.1 g/dL (31.5-36.5); Mean Corpuscular Volume 89 fL (80-100); NEUTROPHILS ABSOLUTE AUTO 8.55 K/mm3 (1.96-9.15); NEUTROPHILS PERCENT AUTO 71 % (41-73); NRBC ABSOLUTE 0.00 K/mm3 (0.00-0.02); NRBC Auto 0.0 /100 WBC (0.0-0.2); Platelet Count 417 K/mm3 (150-400); RDW Coefficient Variation 16.2 % (11.7-14.2); RDW Standard Deviation 52.3 fL (35.1-46.3)
[2024-11-04 13:08] LABS: Ethanol (Alcohol), Blood, Med 21.0 mg/dL
[2024-11-04 13:09] LABS: Alanine Aminotransfer (ALT/SGP 25.0 U/L (12-78); Albumin, Blood 4.0 g/dL (3.4-5.0); Albumin/Globulin Ratio 1.0 (0.8-1.8); Anion Gap 10.0 mmol/L (3-11); Aspartate Aminotrans (AST/SGOT 19.0 U/L (12-37); Bilirubin, Total 0.4 mg/dL (0.1-1.0); Blood Urea Nitrogen 21.0 mg/dL (8-24); CO2, Blood 22.0 mmol/L (21-32); Calcium, Blood 9.6 mg/dL (8.5-10.1); Chloride, Blood 105.0 mmol/L (98-108); Creatinine, Blood 0.9 mg/dL (0.40-1.00); Globulin, Blood 4.2 g/dL (2.2-4.0); Glucose, Blood 118.0 mg/dL (70-99); Potassium, Blood 4.1 mmol/L (3.5-5.5); Sodium, Blood 133.0 mmol/L (136-145); Total Protein, Blood 8.2 g/dL (6.4-8.2)
[2024-11-04 13:42] LABS: Influenza A, PCR NEGATIVE (NEGATIVE); Influenza B, PCR NEGATIVE (NEGATIVE); Resp Syncytial Virus, PCR NEGATIVE (NEGATIVE); SARS-Cov-2 (COVID-19) PCR, MMC NEGATIVE (NEGATIVE)
[2024-11-04 14:30] LABS: Source, Urine Clean Catch
[2024-11-04 14:52] LABS: Bilirubin, Urine Neg (Neg); Color, Urine Yellow (P-Yellow); Glucose Qualitative, Urine Neg (Neg); Ketones, Urine Neg (Neg); Leukocyte Esterase, Urine Neg (Neg); Protein, Urine 3+ (Neg); Specific Gravity, Urine 1.020 (1.003-1.022); Urobilinogen, Urine NORM (Normal)
[2024-11-04 15:11] LABS: White Blood Cells, Urine 0-2 /hpf (0-5)
[2024-11-04 16:54] VITALS: BP 161/101
== END 2024-11-04 16:59 | disposition home or self-care (01) ==
LOC: ER 11:49
PROVIDERS: Physician Assistant
DX: I10 Essential (primary) hypertension (principal); F17.210 Nicotine dependence, cigarettes, uncomplicated; Z79.82 Long term (current) use of aspirin; Z79.899 Other long term (current) drug therapy
CPT/HCPCS: 80053; 80320; 81001; 85025; 87637; 93005; 93010; 99284-25; A9270

== ENCOUNTER → 2025-01-27 | Outpatient (CLI) | payer MEDICARE, OTHER ==
[2025-01-27 15:19] LABS: C DIFFICILE DNA NEGATIVE (Negative)
== END ==
LOC: LAB 12:10 → LAB SHORT 12:10
PROVIDERS: Internal Medicine Nephrology
DX: N18.30 Chronic kidney disease, stage 3 unspecified (principal); D63.1 Anemia in chronic kidney disease
CPT/HCPCS: 87493